=== PATIENT | female | born 1950 | race Caucasian/White ===

== ENCOUNTER 2019-10-16 13:20 | Emergency (ER) | payer MEDICARE ==
[~2019-10-16] VITALS: Ht 160 cm; Wt 60.0 kg
[~2019-10-16 13:20] MED LIST: ALBU6.7H9 INH; BREX1TAB PO; COU5T PO; DOXE25CA3 PO; DULO-31 PO; ENOX40SY7 SQ; FENT1PAT10 TP; HYDR-4353 PO; LORA1TAB PO; METO-539 PO; ZOLP10TA5 PO
[2019-10-16] MEDS ORDERED: normal saline 1000ML IV soln IVB ONE (13:30)
[2019-10-16] MEDS ORDERED: oxyCODONE/APAP 10/325mg tablet PO ONE (13:40)
[2019-10-16] MEDS ORDERED: LORazepam 1 MG tablet PO ONE (13:40)
[2019-10-16 14:07] LABS: BASOPHILS # (AUTO) 0.1 X10'3 (0-0.2); BASOPHILS % (AUTO) 0.7 % (0-1); EOSINOPHILS # (AUTO) 0.1 X10'3 (0-0.9); EOSINOPHILS % (AUTO) 1.2 % (0-6); HEMATOCRIT 42.8 % (35.0-45.0); HEMOGLOBIN 14.5 g/dl (12.0-16.0); LYMPHOCYTES # (AUTO) 1.8 X10'3 (1.1-4.8); LYMPHOCYTES % (AUTO) 24.6 % (21-51); MEAN CORPUSCULAR HEMOGLOBIN 29.9 PG (27.0-31.0); MEAN CORPUSCULAR HGB CONC 33.8 g/dL (33.0-36.5); MEAN CORPUSCULAR VOLUME 88.3 FL (78-98); MEAN PLATELET VOLUME 8.2 FL (7.4-10.4); MONOCYTES # (AUTO) 0.5 X10'3 (0-0.9); MONOCYTES % (AUTO) 7.3 % (2-12); NEUTROPHILS # (AUTO) 4.8 X10'3 (1.8-7.7); NEUTROPHILS % (AUTO) 66.2 % (42-75); PLATELET COUNT 303 X10'3 (140-440); RED BLOOD COUNT 4.85 X10'6 (4.20-5.60); RED CELL DISTRIBUTION WIDTH 13.7 % (11.5-14.5); WHITE BLOOD COUNT 7.2 X10'3 (4.5-11.0)
[2019-10-16 14:22] LABS: ALANINE AMINOTRANSFERASE 19 U/L (12-78); ALBUMIN 3.7 G/DL (3.4-5.0); ALBUMIN/GLOBULIN RATIO 1.1 (1.1-1.5); ALKALINE PHOSPHATASE 113 IU/L (46-116); ANION GAP 12 (8-16); ASPARTATE AMINO TRANSFERASE 20 U/L (10-37); BILIRUBIN,TOTAL 0.5 MG/DL (0.1-1.0); BLOOD UREA NITROGEN 18 MG/DL (7-18); BUN/CREATININE RATIO 15.3 (6.6-38.0); CALCIUM 10.1 MG/DL (8.5-10.1); CHLORIDE 107 MMOL/L (99-107); CREATININE 1.18 MG/DL (0.40-0.90); GLUCOSE 115 MG/DL (70-104); POTASSIUM 4.7 MMOL/L (3.5-5.1); SODIUM 144 MMOL/L (135-145); TOTAL CARBON DIOXIDE 25.4 MMOL/L (24-32); TOTAL PROTEIN 7.1 G/DL (6.4-8.2); eGFR 45 ML/MIN
--- NOTE | 2019-10-16 14:24 | NUR ---
Spoke with daughter on the phone. Pt okayed talking to her regarding what is going on with the pt. Per daughter, the pt has been under added stress recently and has also attempted to hurt herself in the past.
[2019-10-16 14:31] LABS: ETHANOL < 0.010 GM/DL (0.0-0.010)
--- NOTE | 2019-10-16 15:55 | NUR ---
Pt moved to overflow bed 25 with Pedro DUMONT
--- NOTE | 2019-10-16 16:32 | NUR ---
Patient's daughter (Leta), left her , and Home # [phone], in case she needs to be reached.
[2019-10-16 16:41] LABS: CLARITY,URINE CLEAR (Clear); COLOR,URINE YELLOW (Yellow); GLUCOSE, URINE NEGATIVE (Neg); KETONES,URINE NEGATIVE (Neg); LEUKOCYTE ESTERASE ,URINE LARGE (Neg); NITRITES, URINE POSITIVE (Neg); OCCULT BLOOD,URINE TRACE-INTACT (Neg); PH,URINE 8.5 (4.8-8.0); PROTEIN,URINE NEGATIVE (Neg); UA COLLECTION TYPE CLN CATCH MIDSTREAM; UROBILINOGEN,URINE 0.2 E.U/dL (0.2-1.0)
[2019-10-16 16:44] LABS: URINE AMPHETAMINE SCREEN NEGATIVE (Neg); URINE BARBITUATE SCREEN NEGATIVE (Neg); URINE BENZODIAZEPINES SCREEN POSITIVE (Neg); URINE CANNABINOID SCREEN NEGATIVE (Neg); URINE COCAINE SCREEN NEGATIVE (Neg); URINE METHADONE SCREEN NEGATIVE (Neg); URINE OPIATE SCREEN POSITIVE (Neg); URINE PHENCYCLIDINE SCREEN NEGATIVE (Neg)
[2019-10-16 16:46] LABS: BACTERIA,URINE 4+ /HPF (Neg); MUCUS STRANDS NONE SEEN /LPF (Neg); RBC,URINE 0-2 /HPF (0-2); SQUAMOUS EPITHELIAL CELL,UR FEW /LPF (FEW); WBC,URINE 20-30 /HPF (0-4)
[2019-10-16 16:47] LABS: AMORPHOUS PHOSPHATES 1+; WBC CLUMPS,URINE FEW /HPF (NEGATIVE)
--- NOTE | 2019-10-16 17:20 | NUR ---
PACKET SENT TO [facility]
[2019-10-16] MEDS: acetaminophen 325mg tablet PO PRN (19:29)
--- NOTE | 2019-10-17 00:48 | NUR ---
RECEIVED REPORT FROM JILLIAN BOBO. PT CALM AND COOPERATIVE, SLEEPING IN BED ON RIGHT SIDE NO S/S DISTRESS. RESPIRATIONS EVEN AND UNLABORED. WILL CONTINUE TO MONITOR.
--- NOTE | 2019-10-17 02:02 | NUR ---
pt appears to be asleep in bed lying back. no signs/symptoms/complaints of distress. respirations even and unlabored. will continue to monitor.
--- NOTE | 2019-10-17 02:20 | NUR ---
pt ambulated to bathroom without issue. returned back to bed afterwards. appears asleep at this time.
--- NOTE | 2019-10-17 04:37 | NUR ---
pt appears to be asleep in bed lying on left side. no signs/symptoms/complaints of distress. respirations even and unlabored. will continue to monitor.
--- NOTE | 2019-10-17 04:48 | NUR ---
pt up to use bathroom. pt then returned back to bed without issue. will continue to monitor
--- NOTE | 2019-10-17 07:00 | NUR ---
Patient is resting in bed peacefully at this time. No distress observed. Will continue to monitor.
[2019-10-17] MEDS ORDERED: FOSFOMYCIN TROMETHAMINE 3 GM PACKET PO ONE (08:50)
[2019-10-17] MEDS ORDERED: hydrOXYzine 25 MG tablet PO ONE (08:50)
--- NOTE | 2019-10-17 08:50 | NUR ---
Pt states that she is anxious and that her palms are sweating. Informed Dr. Singh. He states he will give her something for this and her UTI.
--- NOTE | 2019-10-17 09:27 | NUR ---
Felix [facility] is at bedside assessing patient. Patient is tearful and states that she often feels that she does not want to be alive. Will continue to monitor.
[2019-10-17] MEDS ORDERED: LORazepam 1 MG tablet PO ONE (10:40)
[2019-10-17] MEDS: acetaminophen 325mg tablet PO PRN (11:07)
--- NOTE | 2019-10-17 11:18 | NUR ---
Pt is tearful and states that her left shoulder hurts and she is "very anxious". One time dose of ativan and tylenol PRN given for symptoms.
--- NOTE | 2019-10-17 11:50 | NUR ---
Patient states that the ativan has helped with her anxiety, but states that the Tylenol is not helpful. Ice pack applied to left shoulder. Spoke to LEO Kilgore and he states that this may be more helpful than heat, will continue to monitor.
--- NOTE | 2019-10-17 11:55 | NUR ---
Felix [facility] is at bedside talking to patient.
--- NOTE | 2019-10-17 11:59 | NUR ---
Spoke to Felix [facility], he states that patient may go voluntarily up to [facility] at [facility]. Will continue to monitor.
--- NOTE | 2019-10-17 12:40 | NUR ---
pt is resting in bed. no concerns at this time
--- NOTE | 2019-10-17 13:11 | NUR ---
Mother and daughter are at bedside visiting with patient. Patient is sitting at edge of bed eating lunch. No distress observed.
--- NOTE | 2019-10-17 14:00 | NUR ---
spoke to patients daughter, Leta, she states that the patient has a long history of suicide attempts through overdose. She has a Hx of KODAK and was to a doctor who "gave her anything she wanted as far as medications". She also states that the patient is "manipulative and abusive."
[2019-10-17] MEDS ORDERED: DOXE50CA4 PO (14:36)
[2019-10-17] MEDS ORDERED: ROPI1TAB4 PO (14:36)
[2019-10-17] MEDS ORDERED: APAP/CODEINE PO (14:36)
[2019-10-17] MEDS ORDERED: ARIP10TA17 PO (14:36)
[2019-10-17] MEDS ORDERED: PROP20TA6 PO (14:36)
[2019-10-17] MEDS ORDERED: WARF-65 PO (14:40)
[2019-10-17] MEDS ORDERED: DESV50TA20 PO (14:40)
[2019-10-17] MEDS ORDERED: METO-395 PO (14:40)
[2019-10-17] MEDS ORDERED: ACET-1059 PO (14:50)
--- NOTE | 2019-10-17 15:10 | NUR ---
Patient discharged from the unit to [facility] accompanied Prem, [facility] unit tech, and security. All items inventoried and in patient's possession at time of discharge. Pt reprots she is a non-smoker. All paperwork and resources discussed with patient. Questions were answered and patient verbalized understanding. Patient ambulated self. Still reports SI with active plan to "sit in her car and choke on the fumes." No distress observed.
[2019-10-17 15:23] VITALS: BP 123/86
== END 2019-10-17 15:10 ==
LOC: ER 13:21
DX: F32.9 Major depressive disorder, single episode, unspecified (principal); G89.29 Other chronic pain; F41.9 Anxiety disorder, unspecified; Z88.5 Allergy status to narcotic agent; Z88.8 Allergy status to other drugs, medicaments and biological substances; Z79.01 Long term (current) use of anticoagulants; Z79.899 Other long term (current) drug therapy
CPT/HCPCS: 36415; 80053; 80305; 80320; 81001; 84443; 85025; 85610; 87077; 87088; 87186; 99285; Z7610